=== PATIENT | female | born 1985 | race Caucasian/White ===

== ENCOUNTER 2017-08-25 00:02 | Emergency (ER) | payer SELFPAY ==
[~2017-08-25] VITALS: Ht 162.6 cm; Wt 134.0 kg
[2017-08-25] MEDS ORDERED: SODIUM CHLORIDE 0.9% 1,000 ML IV ONE (03:13)
[2017-08-25] MEDS ORDERED: LORAZEPAM 2MG/ML CPJ IV ONE (03:15)
[2017-08-25 03:55] LABS: BASOPHILS % 0.4 % (0.0-2.0); EOSINOPHILS % 2.4 % (0.0-5.0); HEMATOCRIT. 34.5 % (36.0-48.0); HEMOGLOBIN. 10.9 g/dL (12.0-16.0); LYMPHOCYTES % 30.2 % (20.0-50.0); MEAN CORPUSCULAR HEMOGLOBIN 23.6 pg (28.0-32.0); MEAN CORPUSCULAR VOLUME 74.8 fL (81.0-99.0); MEAN PLATELET VOLUME 8.9 fl (7.4-10.4); MONOCYTES % 7.2 % (2.0-8.0); NEUTROPHILS % 59.8 % (40.0-76.0); PLATELET 299 x1000/uL (130-400); RED BLOOD CELL COUNT 4.61 mill/uL (4.2-5.4); RED CELL DISTRIBUTION WIDTH 18.2 % (11.6-14.6)
[2017-08-25 03:59] LABS: HCG SCREEN NEGATIVE
[2017-08-25 04:06] LABS: D-DIMER 0.89 mg/L FEU (<0.50); PARTIAL THROMBOPLASTIN TIME 28.5 sec (23.4-31.0); PROTHROMBIN TIME 10.7 sec (9.4-11.6)
[2017-08-25 04:11] LABS: CARBON DIOXIDE 24 mEq/L (21-32); CHLORIDE 106 mEq/L (98-107); CREATINE KINASE 173 IU/L (26-192); TROPONIN I < 0.02 ng/mL (0.00-0.04)
[2017-08-25 06:32] VITALS: BP 141/67
[2017-08-25] MEDS ORDERED: IOHEXOL-350 100 ML BOTTLE ONE (07:05)
== END 2017-08-25 06:32 | disposition home or self-care (01) ==
LOC: ER 00:02
DX: F41.9 Anxiety disorder, unspecified (principal); F45.8 Other somatoform disorders; R00.2 Palpitations; E66.9 Obesity, unspecified; Z98.890 Other specified postprocedural states
CPT/HCPCS: 36415; 71275; 80053; 82550; 83690; 83880; 84443; 84484; 84703; 85025; 85379; 85610; 85730; 93005; 96361; 96374; 99285; J2060; J7030; Q9967; Z7610